=== PATIENT | male | born 1965 | race Caucasian/White ===

== ENCOUNTER 2016-07-24 16:10 | Emergency (ER) | payer SELFPAY ==
[2016-07-24] MEDS ORDERED: ALBUTEROL SULFATE 0.083% NEB 2.5 MG/3 ML AMPUL NEB ONE (17:19)
--- NOTE | 2016-07-24 17:19 | ER Document Report ---
ED Medical Screen (RME) - General Chief Complaint: Breathing Difficulty Stated Complaint: BREATHING CONCERNS Notes: 50 yo male c/o difficulty breathing today. Took breathing treatment today without relief. Ran out of inhaler today. + hx/o asthma and COPD, DM, HTN. occasional sharp pains in left shoulder. TRAVEL OUTSIDE OF THE [place] IN LAST 30 DAYS: No - Related Data Allergies/Adverse Reactions: No Known Allergies Allergy (Verified 07/24/16 16:45) Past Medical History - Social History Chew tobacco use (# tins/day): No Frequency of alcohol use: None Drug Abuse: None - Past Medical History Cardiac Medical History: Reports: Hx Hypercholesterolemia, Hx Hypertension Pulmonary Medical History: Reports: Hx Asthma, Hx Bronchitis, Hx Pneumonia Denies: Hx Tuberculosis Neurological Medical History: Reports: Hx Cerebrovascular Accident - 2 years ago mini stroke Endocrine Medical History: Denies: Hx Diabetes Mellitus Type 2 Psychiatric Medical History: Reports: Hx Depression - Immunizations Hx Diphtheria, Pertussis, Tetanus Vaccination: No Physical Exam - Vital signs Vitals: Temp Pulse Resp BP Pulse Ox 97.6 F 88 20 126/74 H 93 07/24/16 16:47 07/24/16 16:47 07/24/16 16:47 07/24/16 16:47 07/24/16 16:47 Course - Vital Signs Vital signs: Temp Pulse Resp BP Pulse Ox 97.6 F 88 20 126/74 H 93 07/24/16 16:47 07/24/16 16:47 07/24/16 16:47 07/24/16 16:47 07/24/16 16:47
--- NOTE | 2016-07-24 18:42 | ER Document Report ---
ED Respiratory Problem - General Mode of Arrival: Ambulatory Information source: Patient TRAVEL OUTSIDE OF THE [place] IN LAST 30 DAYS: No - HPI Patient complains to provider of: Other - Difficulty breathing Associated symptoms: Other - See above - General Chief Complaint: Breathing Difficulty Stated Complaint: BREATHING CONCERNS Notes: Patient is a 50 year old male, with a past medical history including diabetes and COPD, who presents to the emergency department complaining of difficulty breathing onset this evening. Patient states that he ran out of his inhalers today, his last breathing treatment was at 1300 and reports that he started to have some difficulty breathing later this afternoon. Patient reports that he has a breathing machine at home but is not on home oxygen. Patient also reports left shoulder pain onset this morning which he believes may be due to sleeping strangely. Patient denies cough, fever, diaphoresis, nausea, vomiting, diarrhea , and difficulty urinating or defecating. [facility] (DAVION JETT) - Related Data Allergies/Adverse Reactions: No Known Allergies Allergy (Verified 07/24/16 16:45) Past Medical History - General Information source: Patient - Social History Smoking Status: Current Every Day Smoker Chew tobacco use (# tins/day): No Frequency of alcohol use: None Drug Abuse: None Family History: Reviewed & Not Pertinent, DM, Hypertension Patient has suicidal ideation: No Patient has homicidal ideation: No - Past Medical History Cardiac Medical History: Reports: Hx Hypercholesterolemia, Hx Hypertension Pulmonary Medical History: Reports: Hx Asthma, Hx Bronchitis, Hx COPD, Hx Pneumonia Neurological Medical History: Reports: Hx Cerebrovascular Accident - 2 years ago mini stroke Endocrine Medical History: Reports: Hx Diabetes Mellitus Type 1 Psychiatric Medical History: Reports: Hx Depression - Immunizations Hx Diphtheria, Pertussis, Tetanus Vaccination: No Hx Pneumococcal Vaccination: 08/04/13 Review of Systems - Review of Systems Constitutional: denies: Fever EENT: No symptoms reported Cardiovascular: No symptoms reported Respiratory: See HPI, Other - Difficulty breathing. denies: Cough Gastrointestinal: denies: Diarrhea, Nausea, Vomiting, Other - Difficulty urinating or defecating Genitourinary: No symptoms reported Male Genitourinary: No symptoms reported Musculoskeletal: No symptoms reported Skin: No symptoms reported Hematologic/Lymphatic: No symptoms reported Neurological/Psychological: No symptoms reported -: Yes All other systems reviewed and negative Physical Exam - Vital signs Interpretation: Normal - General General appearance: Appears well, Alert - HEENT Head: Normocephalic, Atraumatic - Respiratory Respiratory status: No respiratory distress Chest status: Nontender Breath sounds: Wheezing - expiratory Chest palpation: Normal - Cardiovascular Rhythm: Regular Heart sounds: Normal auscultation Murmur: No - Back Back: Normal - Extremities General upper extremity: Normal inspection General lower extremity: Normal inspection. No: Edema - Neurological Neuro grossly intact: Yes Cognition: Normal Orientation: AAOx4 Jenny Coma Scale Eye Opening: Spontaneous Jenny Coma Scale Verbal: Oriented Jenny Coma Scale Motor: Obeys Commands [place] Coma Scale Total: 15 Speech: Normal - Psychological Associated symptoms: Normal affect, Normal mood - Skin Skin Temperature: Warm Skin Moisture: Dry Skin Color: Normal - Vital signs Vitals: Temp Pulse Resp BP Pulse Ox 97.6 F 88 20 126/74 H 93 07/24/16 16:47 07/24/16 16:47 07/24/16 16:47 07/24/16 16:47 07/24/16 16:47 (LILO BATISTA) (DAVION JETT) Course - Re-evaluation Re-evalutation: 07/24/16 19:13 I personally performed the services described in the documentation, reviewed and edited the documentation which was dictated to my scribe in my presence, and it accurately records my words and actions. Patient is a smoker with history of COPD not oxygen ran out of his inhaler today. States that he has used his breathing treatments at home with improvement but he left had some trouble breathing is inhaler when he was out of the house didn't have at some he came here. He denies any chest pain or pressure. He denies any exertional component to this or cardiac complaints. He said yesterday he had some left shoulder pain but was not associated with chest pain shortness of breath that lasted a second resolved has not been persistent no shortness of breath or pain on exertion. No recent history of travel surgery mobilization DVT or pulmonary embolus. He is not hypoxic no acute respiratory distress lungs with expiratory wheeze chest x-ray negative for pneumonia. Discharged on steroids understanding and will increase assuring us cover for that albuterol inhaler one 2 days and discussed reasons for ED return sooner ( LILO BATISTA) - Vital Signs Vital signs: Temp Pulse Resp BP Pulse Ox 98.4 F 77 18 131/73 H 96 07/24/16 19:25 07/24/16 19:25 07/24/16 19:25 07/24/16 19:25 07/24/16 19:25 (LILO BATISTA) (DAVION JETT) Scribe Documentation - Scribe Written by Curtis:: curtis Bates, 07/24/16, 1851 acting as scribe for :: Jeff
[2016-07-24 19:26] VITALS: BP 131/73
--- NOTE | 2016-08-05 09:17 | ER Document Report ---
Doctor's Note Notes: 08/05/16 09:16 diagnosis 1. copd exacerbation 2. tobacco abuse 3. medication refill
== END 2016-07-24 19:26 | disposition home or self-care (01) ==
LOC: ER 16:10
DX: J44.1 Chronic obstructive pulmonary disease with (acute) exacerbation (principal); F17.200 Nicotine dependence, unspecified, uncomplicated; E78.00 Pure hypercholesterolemia, unspecified; I10 Essential (primary) hypertension; E10.9 Type 1 diabetes mellitus without complications
CPT/HCPCS: 71020; 94640; 99284

== ENCOUNTER 2020-04-03 10:46 | Emergency (ER) | payer MEDICARE, MEDICAID ==
[2020-04-03 11:26] LABS: INTERNATIONAL RATION (INR) 0.86
--- NOTE | 2020-04-03 11:37 | RADIOLOGY REPORT (SQ) ---
EXAM DESCRIPTION: CHEST SINGLE VIEW IMAGES COMPLETED DATE/TIME: 04/03/2020 11:27 am REASON FOR STUDY: chest pain COMPARISON: 07/24/2016 EXAM PARAMETERS: NUMBER OF VIEWS: One view. TECHNIQUE: Single frontal radiographic view of the chest acquired. RADIATION DOSE: NA LIMITATIONS: None. FINDINGS: LUNGS AND PLEURA: No focal consolidation, pleural effusion or pneumothorax. Unchanged obs curation of the cardiac apex, likely prominent pericardial fat. MEDIASTINUM AND HILAR STRUCTURES: No masses. Contour normal. HEART AND VASCULAR STRUCTURES: Heart normal in size. Normal vasculature. BONES: No acute findings. HARDWARE: None in the chest. OTHER: No other significant finding. IMPRESSION: No evidence of acute cardiopulmonary process. TECHNICAL DOCUMENTATION: JOB ID: [id number] 2010 [employer]- All Rights Reserved Reading location - IP/workstation name: [email or web address]
[2020-04-03 11:44] LABS: ABSOLUTE BASOPHILS # (AUTO) 0.1 10^3/uL (0.0-0.2); ABSOLUTE EOSINOPHILS # (AUTO) 0.2 10^3/uL (0.0-0.6); ABSOLUTE MONOCYTES (AUTO) 0.6 10^3/uL (0.1-1.4); ABSOLUTE NEUT (AUTO) 6.4 10^3/uL (1.7-8.2); BASOPHILS % (AUTO) 0.6 % (0-2); EOSINOPHILS % (AUTO) 1.8 % (0-6); HEMATOCRIT 48.8 % (37.9-51.0); HEMOGLOBIN 17.2 g/dL (13.5-17.0); LYMPHOCYTES % (AUTO) 21.6 % (13-45); MEAN CORPUSCULAR HEMOGLOBIN 34.8 pg (27.0-33.4); MEAN CORPUSCULAR HGB CONC 35.2 g/dL (32.0-36.0); MEAN CORPUSCULAR VOLUME 99 fl (80-97); MONOCYTES % (AUTO) 6.4 % (3-13); PLATELET COUNT 195 10^3/uL (150-450); RED BLOOD COUNT 4.94 10^6/uL (4.35-5.55); RED CELL DISTRIBUTION WIDTH 13.3 % (11.5-14.0); SEGMENTED NEUTROPHILS % (AUTO) 69.6 % (42-78); TOTAL CELLS COUNTED % (AUTO) 100 %; WHITE BLOOD COUNT 9.2 10^3/uL (4.0-10.5)
[2020-04-03 13:01] LABS: ALBUMIN 3.7 g/dL (3.5-5.0); ALKALINE PHOSPHATASE 105 U/L (38-126); ANION GAP 6 (5-19); ASPARTATE AMINO TRANSFERASE 21 U/L (17-59); BILIRUBIN,DIRECT 0.3 mg/dL (0.0-0.4); BILIRUBIN,TOTAL 0.3 mg/dL (0.2-1.3); BLOOD UREA NITROGEN 16 mg/dL (7-20); CALCIUM 8.9 mg/dL (8.4-10.2); CARBON DIOXIDE 33 mmol/L (22-30); CHLORIDE 98 mmol/L (98-107); GLUCOSE 336 mg/dL (75-110); TOTAL PROTEIN 6.3 g/dL (6.3-8.2)
[2020-04-03 13:11] LABS: CREATINE KINASE MB 2.27 ng/mL (<4.55)
[2020-04-03 13:16] LABS: TROPONIN I 0.041 ng/mL
--- NOTE | 2020-04-03 13:55 | ER Document Report ---
Entered by KADEN HO SCRIBE 04/03/20 1306 Acting as scribe for:PATEL BUCK MD ED General - General Chief Complaint: Chest Pain Stated Complaint: CHEST PAIN OVER 1 WEEK Time Seen by Provider: 04/03/20 12:50 Mode of Arrival: Ambulatory Information source: Patient Notes: This 54 year old male patient presents to the emergency department today with complaints of right sided chest wall pain for the last week and a half. Patient reports his pain is reproducible with breathing and with certain movements. Patient expressed frustration as he has been worked up for this several times in the past and "they can never find anything". Patient mentions that 2-3 months ago he was seen at [facility] and they did a CTA which was unremarkable. He reports that when he mentions this to his PCP "they only tell him to stop smoking". TRAVEL OUTSIDE OF THE [place] IN LAST 30 DAYS: No - Related Data Allergies/Adverse Reactions: No Known Allergies Allergy (Verified 07/24/16 16:45) Home Medications: Metformin. Brio Inhaler Past Medical History - General Information source: Patient - Social History Smoking Status: Current Every Day Smoker Cigarette use (# per day): Yes Frequency of alcohol use: None Drug Abuse: None Lives with: Family Family History: Reviewed & Not Pertinent, DM, Hypertension Patient has homicidal ideation: No - Past Medical History Cardiac Medical History: Reports: Hx Hypercholesterolemia, Hx Hypertension Pulmonary Medical History: Reports: Hx Asthma, Hx Bronchitis, Hx COPD, Hx Pneumonia Neurological Medical History: Reports: Hx Cerebrovascular Accident - 2 years ago mini stroke Endocrine Medical History: Reports: Hx Diabetes Mellitus Type 1 Psychiatric Medical History: Reports: Hx Depression - Immunizations Hx Diphtheria, Pertussis, Tetanus Vaccination: No Hx Pneumococcal Vaccination: 08/04/13 Review of Systems - Review of Systems Constitutional: No symptoms reported EENT: No symptoms reported Cardiovascular: See HPI, Chest pain - reproducible, right sided Respiratory: No symptoms reported Gastrointestinal: No symptoms reported Genitourinary: No symptoms reported Male Genitourinary: No symptoms reported Musculoskeletal: No symptoms reported Skin: No symptoms reported Hematologic/Lymphatic: No symptoms reported Neurological/Psychological: No symptoms reported -: Yes All other systems reviewed and negative Physical Exam - Vital signs Vitals: Resp Pulse Ox 25 H 92 04/03/20 10:55 04/03/20 10:55 - Notes Notes: Physical Exam: General: Alert, appears well. HEENT: Normocephalic. Atraumatic. PERRL. Extraocular movements intact. Oropharynx clear. Neck: Supple. Non-tender. Respiratory: No respiratory distress. Coarse breath sounds with mild wheezing consistent with smoking history. Right anterior chest wall tenderness to palpation. Reproducible chest pain. Cardiovascular: Regular rate and rhythm. Abdominal: Obese. Non-tender. No distension. Normal Bowel Sounds. Back: No gross abnormalities. Extremities: Moves all four extremities. Upper extremities: Normal inspection. Normal ROM. Lower extremities: Normal inspection. No edema. Normal ROM. Neurological: Normal cognition. AAOx4. Normal speech. Psychological: Normal affect. Normal Mood. Skin: Warm. Dry. Normal color. Course - Re-evaluation Re-evalutation: 04/03/20 16:26 The patient was evaluated during the global COVID-19 pandemic and that diagnosis was suspected/considered upon their initial presentation. Their evaluation, treatment and testing was consistent with current guidelines for patients who present with complaints or symptoms that may be related to COVID-19. The patient reports the right-sided chest pain seemed to improve some after the Toradol. I advised him that he can take Aleve or ibuprofen. He states ibuprofen does not do anything for him. I told him he should try Aleve. He wanted to know if we could give him an albuterol inhaler because he had gone through his limit for the month with Medicaid. I told him we had a severe extreme shortage on inhalers and we have not had any to dispense in quite some time since the COVID outbreaks. I again suggested that he perhaps reduce smoking so that he does not need to use inhalers quite so much. He was given copies of his lab work to take to his primary care provider showing his hemoglobin A1c of 10.8 and blood sugar of 336. The patient's chest pain is clearly pleuritic. EKG does not show acute ischemic changes. Serial troponins remained in the low indeterminate range. - Vital Signs Vital signs: Temp Pulse Resp BP Pulse Ox 22 H 164/86 H 93 04/03/20 11:07 04/03/20 11:07 04/03/20 11:07 - Laboratory Result Diagrams: 04/03/20 11:30 04/03/20 12:03 Laboratory results interpreted by me: 09/04/03/20 04/03/20 11:30 11:30 12:03 Hgb 17.2 H MCV 99 H MCH 34.8 H Carbon Dioxide 33 H Glucose 336 H Hemoglobin A1c % 10.8 H - Diagnostic Test Radiology reviewed: Image reviewed, Reports reviewed - CXR-No acute cardiopulmonary process - EKG Interpretation by Me EKG shows normal: Sinus rhythm, [place], QRS Complexes. abnormal: Intervals - Borderline prolonged QT interval, ST-T Waves - Borderline T wave abnormalities Rate: Tachycardia - 104 P Waves: LAE When compared to previous EKG there are: No significant change Discharge - Discharge Clinical Impression: Hyperglycemia COPD (chronic obstructive pulmonary disease) Qualifiers: COPD type: unspecified COPD Qualified Code(s): J44.9 - Chronic obstructive pulmonary disease, unspecified Chest pain Qualifiers: Chest pain type: chest pain on breathing Qualified Code(s): R07.1 - Chest pain on breathing; R07.81 - Pleurodynia Condition: Stable Disposition: HOME, SELF-CARE Additional Instructions: Chest Wall Pain Your chest pain has been diagnosed as coming from the chest wall. This is often caused by straining the muscles or joints in the chest during physical activity, direct trauma, coughing, or vigorous vomiting. Persons with arthritis are especially prone to this type of pain, due to inflammation of the cartilage joints near the breast bone. Occasionally, no cause can be found. Rest from strenuous physical activity. This kind of chest pain is usually made worse by movement of the chest. Depending on the symptoms, we may prescribe medicine for pain, muscle relaxation, and antiinflammatory effects. If the pain is new, and seems to be due to muscle strain, cold packs can help. Otherwise, apply gentle warmth to the painful area for 15 minutes every hour or two. You should contact the doctor immediately if things change. Further evaluation is needed if you develop a fever or cough, if the nature of the pain changes, or if you become short of breath. Your chest pain today seems to be coming from the right thoracic chest wall. Take 2 Aleve tablets every 12 hours to help reduce the discomfort. Your blood sugar was elevated today, and your hemoglobin A1c was quite high suggesting that your blood sugars are always running in the mid 300 range. You should follow-up with your primary care provider to discuss your blood sugar control, and your COPD management. RETURN TO THE EMERGENCY ROOM IF ANY NEW OR WORSENING SYMPTOMS. I personally performed the services described in the documentation, reviewed and edited the documentation which was dictated to the scribe in my presence, and it accurately records my words and actions.
[2020-04-03] MEDS ORDERED: KETOROLAC TROMETHAMINE INJ/PF 30 MG/1 ML SDV IV ONE (15:25)
[2020-04-03 16:53] VITALS: BP 156/101
--- NOTE | 2020-04-03 21:46 | EKG REPORT ---
SEVERITY:- ABNORMAL ECG - SINUS TACHYCARDIA PROBABLE LEFT ATRIAL ABNORMALITY BORDERLINE T WAVE ABNORMALITIES BORDERLINE PROLONGED QT INTERVAL : Confirmed by: Lakeshia Matias 03-Apr-2020 21:45:23
== END 2020-04-03 16:52 | disposition home or self-care (01) ==
LOC: ER 10:46
DX: J44.9 Chronic obstructive pulmonary disease, unspecified (principal); R07.1 Chest pain on breathing; R07.81 Pleurodynia; R07.89 Other chest pain; E10.65 Type 1 diabetes mellitus with hyperglycemia; F17.210 Nicotine dependence, cigarettes, uncomplicated; I10 Essential (primary) hypertension; Z79.84 Long term (current) use of oral hypoglycemic drugs; Z79.51 Long term (current) use of inhaled steroids; Z20.828 Contact with and (suspected) exposure to other viral communicable diseases
CPT/HCPCS: 93005; 99285; 96374; 36415; 82553; 85025; 85610; 80053; 84484; 83036; 85379; 71045; 93010; J1885